=== PATIENT | female | born 1985 | race Two or more races ===

== ENCOUNTER 2022-02-10 09:55 | Inpatient (IN) | payer OTHER ==
[2022-02-10] MEDS ORDERED: AMPICILLIN SODIUM 2 GM VIAL ONE (11:12)
[2022-02-10 11:42] LABS: BASO % 0.3 % (0-2.0); EOS % 0.8 % (0-4.5); HEMATOCRIT 35.2 % (32.4-45.2); MCH 29.7 pg (25.7-33.7); MCHC 34.1 g/dl (32.0-36.0); MEAN PLT VOLUME 11.9 fl (7.5-11.1); MONO % 6.9 % (3.8-10.2); PLATELET COUNT 93 10^3/uL (134-434); RBC 4.04 M/mm3 (3.60-5.2); RDW 13.2 % (11.6-15.6); WHITE BLOOD COUNT 10.6 K/mm3 (4.0-10.0)
[2022-02-10 11:44] LABS: INR 0.95 (0.83-1.09); PROTHROMBIN TIME (PATIENT) 10.9 SEC (9.7-13.0); RETICULOCYTES 2.16 % (0.5-1.5)
[2022-02-10] MEDS ORDERED: DEXTROSE 5%-LACTATED RINGERS 1,000 ML IV SCH (11:45)
[2022-02-10] MEDS ORDERED: AMPICILLIN - 2 GM in SODIUM CHLORIDE 100 ML IVPB ONE (11:45)
[2022-02-10] MEDS ORDERED: OXYTOCIN 30 UNITS in 0.9% NS 30 UNIT/500 ML INFUS.BAG IVPB SCH (11:45)
[2022-02-10 11:47] LABS: ACTIVATED PTT 24.6 SECONDS (25.2-36.5)
[2022-02-10] MEDS ORDERED: PROMETHAZINE HCL 25 MG/1 ML VIAL IVPUSH ONE (11:47)
[2022-02-10] MEDS ORDERED: BUTORPHANOL TARTRATE 1 MG/ML VIAL IVPUSH PRN (11:47)
[2022-02-10 12:02] VITALS: BMI 34.9
[2022-02-10 12:03] LABS: BLOOD UREA NITROGEN 16.5 mg/dL (7-18); CALCIUM 9.1 mg/dL (8.5-10.1)
[2022-02-10 12:06] LABS: CREATININE 1.1 mg/dL (0.55-1.3)
[2022-02-10 12:07] LABS: URIC ACID 6.3 mg/dL (2.6-7.2)
[2022-02-10] MEDS ORDERED: OXYTOCIN 30 UNITS in 0.9% NS 30 UNIT/500 ML INFUS.BAG IVPB ONE (12:21)
[2022-02-10 15:08] LABS: EPI CELLS 7 /uL (0-25.1); HYALINE CASTS 0 /uL (0-3.1); PH,URINE 6.5 (5.0-8.0); URINE APPEARANCE CLEAR; URINE BACTERIA 18 /uL (0-1359); URINE BILIRUBIN NEGATIVE (NEGATIVE); URINE COLOR YELLOW; URINE GLUCOSE (UA) NEGATIVE (NEGATIVE); URINE KETONE NEGATIVE (NEGATIVE); URINE LEUK ESTERASE NEGATIVE (NEGATIVE); URINE NITRITE NEGATIVE (NEGATIVE); URINE PROTEIN NEGATIVE (NEGATIVE); URINE RBC 32 /uL (0-23.9); URINE UROBILINOGEN 0.2 mg/dL (0.2-1.0); URINE WBC 7 /uL (0-25.8)
[2022-02-10] MEDS ORDERED: AMPICILLIN SODIUM 1 GM VIAL ONE ×2 (15:39→19:35)
[2022-02-10] MEDS: AMPICILLIN - 1 GM in SODIUM CHLORIDE 100 ML IVPB SCH ×2 (15:45→19:35)
[2022-02-10] MEDS ORDERED: BUTORPHANOL TARTRATE 1 MG/ML VIAL ONE (20:10)
[2022-02-10] MEDS ORDERED: PROMETHAZINE HCL 25 MG/1 ML VIAL ONE (20:11)
[2022-02-10] MEDS ORDERED: BUTORPHANOL TARTRATE 1 MG/ML VIAL IVPUSH ONE (20:21)
[2022-02-10] MEDS ORDERED: OXYTOCIN 20 UNITS in 0.9% NS 20 UNIT/1,000 ML INFUS.BAG IV ONE (22:14)
[2022-02-11] MEDS ORDERED: AMPICILLIN SODIUM 1 GM VIAL ONE (00:02)
[2022-02-11] MEDS: AMPICILLIN - 1 GM in SODIUM CHLORIDE 100 ML IVPB SCH (00:05)
[2022-02-11] MEDS ORDERED: MISOPROSTOL 200 MCG TABLET ONE (01:02)
[2022-02-11] MEDS ORDERED: MISOPROSTOL 200 MCG TABLET PO ONE (01:08)
[2022-02-11] MEDS ORDERED: IBUPROFEN 600 MG TABLET (FP) PO ONE (01:11)
[2022-02-11] MEDS ORDERED: ACETAMINOPHEN 325 MG TABLET (FP) ONE (01:11)
[2022-02-11] MEDS: IBUPROFEN 600 MG TABLET (FP) PO PRN ×4 (01:15→23:29)
[2022-02-11 01:31] LABS: CORD BASE EXCESS -5.4 mmol/L (0-2); CORD HCO3 19.3 mmHg (20-29); CORD pH 7.347 (7.14-7.44)
[2022-02-11 01:33] LABS: CORD BASE EXCESS -6.7 mmol/L (0-2); CORD HCO3 17.3 mmHg (20-29); CORD PCO2 31.8 mmHg (30-78); CORD pH 7.354 (7.14-7.44)
[2022-02-11] MEDS ORDERED: BISACODYL 10 MG SUPP.RECT RC PRN (02:02)
[2022-02-11] MEDS ORDERED: BENZOCAINE 28 GM HEMORRHOIDAL OINTMENT TP PRN (02:02)
[2022-02-11] MEDS ORDERED: WITCH HAZEL 50% (TUCKS) 40 PAD/JAR PAD TP PRN (02:02)
[2022-02-11] MEDS ORDERED: METHYLERGONOVINE MALEATE 0.2 MG/1 ML AMP IM PRN (02:02)
[2022-02-11] MEDS ORDERED: oxyCODONE HCL 5 MG TABLET PO PRN (02:02)
[2022-02-11] MEDS ORDERED: ACETAMINOPHEN 325 MG TABLET (FP) PO PRN (02:02)
[2022-02-11] MEDS ORDERED: OXYTOCIN 20 UNITS in 0.9% NS 20 UNIT/1,000 ML INFUS.BAG IV SCH (02:15)
[2022-02-11] MEDS: BENZOCAINE 20% 57 GM BOTTLE TP PRN (03:24)
[2022-02-11] MEDS: PRENATAL VITAMINS W/ FOLIC ACID TABLET (FP) PO SCH (09:26)
[2022-02-11] MEDS: FERROUS SO4 325 MG TABLET (FP) PO SCH ×2 (09:26→17:06)
[2022-02-11] MEDS ORDERED: DIPHTH,PERTUSS(ACELL),TET 0.5 ML DISP.SYRIN IM ONE (10:00)
[2022-02-12] MEDS: IBUPROFEN 600 MG TABLET (FP) PO PRN ×2 (06:14→21:14)
[2022-02-12 07:09] LABS: BASO % 0.5 % (0-2.0); EOS % 1.1 % (0-4.5); HEMATOCRIT 29.2 % (32.4-45.2); HEMOGLOBIN 9.9 GM/dL (10.7-15.3); LYMPH % 21.8 % (8-40); MCH 29.5 pg (25.7-33.7); MCHC 33.7 g/dl (32.0-36.0); MEAN CELL VOLUME 87.6 fl (80-96); MONO % 7.4 % (3.8-10.2); NEUT % 69.2 % (42.8-82.8); PLATELET COUNT 82 10^3/uL (134-434); RBC 3.34 M/mm3 (3.60-5.2); RDW 13.7 % (11.6-15.6); WHITE BLOOD COUNT 9.8 K/mm3 (4.0-10.0)
[2022-02-12 07:18] LABS: CALCIUM 8.5 mg/dL (8.5-10.1)
[2022-02-12 07:19] LABS: ALBUMIN 2.5 g/dl (3.4-5.0)
[2022-02-12 07:22] LABS: CREATININE 0.9 mg/dL (0.55-1.3)
[2022-02-12 07:23] LABS: BILIRUBIN,TOTAL 0.3 mg/dL (0.2-1); TOT PROT 5.3 g/dl (6.4-8.2)
[2022-02-12] MEDS: PRENATAL VITAMINS W/ FOLIC ACID TABLET (FP) PO SCH (09:12)
[2022-02-12] MEDS: FERROUS SO4 325 MG TABLET (FP) PO SCH ×2 (09:12→17:50)
[2022-02-12] MEDS: BENZOCAINE 20% 57 GM BOTTLE TP PRN (21:14)
[2022-02-12] MEDS ORDERED: SENNOSIDES/DOCUSATE COMBO (SENNA PLUS) TABLET (UD) PO PRN (22:00)
[2022-02-13] MEDS: IBUPROFEN 600 MG TABLET (FP) PO PRN (08:10)
[2022-02-13] MEDS: FERROUS SO4 325 MG TABLET (FP) PO SCH ×2 (08:10→17:41)
[2022-02-13 08:39] LABS: WHITE BLOOD COUNT 7.8 K/mm3 (4.0-10.0)
[2022-02-13 08:40] LABS: BASO % 0.5 % (0-2.0); EOS % 3.6 % (0-4.5); HEMOGLOBIN 9.9 GM/dL (10.7-15.3); LYMPH % 20.1 % (8-40); MCH 29.3 pg (25.7-33.7); MCHC 33.1 g/dl (32.0-36.0); MEAN CELL VOLUME 88.3 fl (80-96); MEAN PLT VOLUME 10.9 fl (7.5-11.1); MONO % 7.2 % (3.8-10.2); NEUT % 68.6 % (42.8-82.8); PLATELET COUNT 96 10^3/uL (134-434); RBC 3.39 M/mm3 (3.60-5.2); RDW 13.5 % (11.6-15.6)
[2022-02-13 08:56] LABS: ALBUMIN 2.7 g/dl (3.4-5.0); CALCIUM 8.7 mg/dL (8.5-10.1)
[2022-02-13 08:57] LABS: BLOOD UREA NITROGEN 17.6 mg/dL (7-18)
[2022-02-13 09:02] LABS: BILIRUBIN,TOTAL 0.3 mg/dL (0.2-1); TOT PROT 5.7 g/dl (6.4-8.2)
[2022-02-13 09:52] VITALS: BP 120/75; PULSE 74; TEMP 98
[2022-02-13] MEDS: PRENATAL VITAMINS W/ FOLIC ACID TABLET (FP) PO SCH (09:58)
== END 2022-02-13 18:10 | disposition home or self-care (01) | DRG 560 ==
LOC: JLDR 09:55 → J3W 02-11 03:03
PROVIDERS: ADMIT Obstetrics & Gynecology; ATTEND Obstetrics & Gynecology
PROC: 10E0XZZ Delivery of Products of Conception, External Approach (ICD-10-PCS; principal; 2022-02-11)
PROC: 0W8NXZZ Division of Female Perineum, External Approach (ICD-10-PCS; 2022-02-11)
DX: O42.02 Full-term premature rupture of membranes, onset of labor within 24 hours of rupture (principal); Z3A.38 38 weeks gestation of pregnancy; Z37.0 Single live birth; O99.824 Streptococcus B carrier state complicating childbirth; B95.1 Streptococcus, group B, as the cause of diseases classified elsewhere
CPT/HCPCS: 36415; 36600; 59409; 80048; 80053; 81003; 82803; 82977; 83010; 84450; 84460; 84550; 85025; 85032; 85045; 85610; 85730; 86780; 86850; 86900; 86901; 90715; C9803-CS; U0003; U0005

== ENCOUNTER 2024-04-11 08:21 | Inpatient (IN) | payer OTHER ==
[2024-04-11] MEDS: ELECTROLYTE-148 SOLN 1,000 ML IV SCH (09:59)
[2024-04-11 10:23] VITALS: BMI 34.8
[2024-04-11] MEDS ORDERED: OXYTOCIN 30 UNITS in 0.9% NS 30 UNIT/500 ML INFUS.BAG IVPB ONE (10:53)
[2024-04-11] MEDS ORDERED: AMPICILLIN SODIUM 2 GM VIAL ONE (10:55)
[2024-04-11] MEDS: AMPICILLIN - 2 GM in SODIUM CHLORIDE 100 ML IVPB ONE (11:00)
[2024-04-11] MEDS: OXYTOCIN 30 UNITS in 0.9% NS 30 UNIT/500 ML INFUS.BAG IVPB SCH (11:10)
[2024-04-11 14:02] VITALS: RESP 18
[2024-04-11] MEDS ORDERED: AMPICILLIN SODIUM 1 GM VIAL ONE (15:11)
[2024-04-11] MEDS: AMPICILLIN - 1 GM in SODIUM CHLORIDE 100 ML IVPB SCH (15:13)
[2024-04-11] MEDS ORDERED: OXYTOCIN 20 UNITS in 0.9% NS 20 UNIT/1,000 ML INFUS.BAG IV ONE (16:07)
[2024-04-11] MEDS: OXYTOCIN 20 UNITS in 0.9% NS 20 UNIT/1,000 ML INFUS.BAG IV SCH (17:05)
[2024-04-11] MEDS ORDERED: BENZOCAINE 28 GM HEMORRHOIDAL OINTMENT TP PRN (17:27)
[2024-04-11] MEDS ORDERED: METHYLERGONOVINE MALEATE 0.2 MG/1 ML AMP IM PRN (17:27)
[2024-04-11] MEDS ORDERED: BENZOCAINE 20% 57 GM BOTTLE TP PRN (17:27)
[2024-04-11] MEDS ORDERED: BISACODYL 10 MG SUPP.RECT RC PRN (17:27)
[2024-04-11] MEDS ORDERED: WITCH HAZEL 50% (TUCKS) 40 PAD/JAR PAD TP PRN (17:27)
[2024-04-11] MEDS: FERROUS SO4 325 MG TABLET (FP) PO SCH (17:55)
[2024-04-11] MEDS: oxyCODONE HCL 5 MG TABLET PO PRN (17:59)
[2024-04-11 18:19] LABS: CORD BASE EXCESS -4.2 mmol/L (0-2); CORD HCO3 18.4 mmHg (20-29); CORD HCO3 20.3 mmHg (20-29); CORD PCO2 25.9 mmHg (30-78); CORD PCO2 36.2 mmHg (30-78); CORD pH 7.367 (7.14-7.44); CORD pH 7.47 (7.14-7.44)
[2024-04-11] MEDS: IBUPROFEN 600 MG TABLET (FP) PO PRN (22:40)
[2024-04-12] MEDS: ACETAMINOPHEN 325 MG TABLET (FP) PO PRN (00:28)
[2024-04-12 08:59] LABS: BASO % 0.3 % (0-2.0); EOS % 1.2 % (0-4.5); HEMATOCRIT 30.6 % (32.4-45.2); HEMOGLOBIN 10.4 GM/dL (10.7-15.3); LYMPH % 13.6 % (8-40); MCH 30.3 pg (25.7-33.7); MCHC 34.1 g/dl (32.0-36.0); MEAN CELL VOLUME 88.9 fl (80-96); MEAN PLT VOLUME 11.1 fl (7.5-11.1); MONO % 5.4 % (3.8-10.2); NEUT % 79.5 % (42.8-82.8); PLATELET COUNT 76 10^3/uL (134-434); RBC 3.44 M/mm3 (3.60-5.2); WHITE BLOOD COUNT 9.2 K/mm3 (4.0-10.0)
[2024-04-12] MEDS: PRENATAL VITAMINS W/ FOLIC ACID TABLET (FP) PO SCH (10:23)
[2024-04-12] MEDS ORDERED: SENNOSIDES/DOCUSATE COMBO (SENNA PLUS) TABLET (UD) PO PRN (22:00)
[2024-04-13 10:38] VITALS: BP 118/70; PULSE 85; TEMP 98.5
== END 2024-04-13 12:30 | disposition home or self-care (01) | DRG 560 ==
LOC: JLDR 08:21 → J3W 19:51
PROVIDERS: ADMIT Specialist; ATTEND Specialist
PROC: 10E0XZZ Delivery of Products of Conception, External Approach (ICD-10-PCS; principal; 2024-04-11)
DX: O80 Encounter for full-term uncomplicated delivery (principal); Z3A.39 39 weeks gestation of pregnancy; Z37.0 Single live birth
CPT/HCPCS: 36415; 36600; 59409; 80053; 82803; 85025; 85027; 85032; 85610; 85730; 86780; 86850; 86900; 86901; 87389